=== PATIENT | male | born 1945 | race Caucasian/White ===

== ENCOUNTER 2021-07-26 15:12 | Inpatient (IN) ==
[2021-07-26] MEDS ORDERED: 0.9 % Sodium Chloride 500 ML IVC ONE (15:29)
[2021-07-26 15:30] LABS: ABG Base Excess -8 mEq/L (-2 to 3); ABG Chloride 106 mEq/L (98-107); ABG Glucose 519 mg/dL (60-95); ABG HCO3 14 mEq/L (21-27); ABG Ionized Calcium 1.06 mmol/L (1.15-1.35); ABG Oxygen Saturation 86 % (95-98); ABG PCO2 22 mmHg (35-45); ABG PH 7.41 pH Units (7.32-7.45); ABG PO2 49 mmHg (85-104); ABG TCO2 15 mEq/L (20-26)
[2021-07-26] MEDS ORDERED: Acetaminophen 650 MG RECTAL SUPP RC ONE (15:33)
[2021-07-26 15:37] LABS: Basophils % 0.4 %; Hemoglobin 14.7 g/dL (12.9-16.9); Immature Granulocytes % 1.6 % (0-4); Lymphocytes # 1.5 K/mcL (0.6-4.6); Lymphocytes % 17.3 %; Mean Corpuscular HGB Conc 32.7 g/dL (31.6-35.5); Mean Corpuscular Hemoglobin 27.5 pg (28.0-33.3); Mean Corpuscular Volume 84.1 fL (83.0-100.0); Monocytes # 0.8 K/mcL (0.0-1.3); Monocytes % 9.9 %; Nucleated Red Blood Cells 0.4 /100 WBC (0); Platelet Count 244 K/mcL (140-400); Red Blood Count 5.35 M/mcL (4.19-5.50); Red Cell Distribution Width 15.6 % (11.5-14.5); Segmented Neutrophils % 70.8 %; White Blood Count 8.5 K/mcL (4.3-11.1)
[2021-07-26 15:59] LABS: BUN/Creatinine Ratio 19 (6-26); Blood Urea Nitrogen 25 mg/dL (8-23); Calcium 8.7 mg/dL (8.6-10.3); Carbon Dioxide 17 mEq/L (23-29); Chloride 98 mEq/L (98-107); Glucose 483 mg/dL (70-105); Osmolality,Calculated 302 (280-300); Potassium 4.1 mEq/L (3.5-5.1); Sodium 133 mEq/L (136-145); eGFR For African Americans > 60 (> 60); eGFR For Non-African Americans 52 (> 60)
[2021-07-26 16:01] LABS: Troponin I 0.06 ng/mL (< 0.04)
[2021-07-26 16:07] LABS: Large Platelets Present (Not Present); Reactive Lymphocytes Present (Not Present); Smudge Cells Present (Not Present)
[2021-07-26 17:14] LABS: Influenza A PCR Negative (Negative); Influenza B PCR Negative (Negative); Resp. Syncytial Virus PCR Negative (Negative)
[2021-07-26 17:21] LABS: SARS-CoV-2 by PCR (In House) Positive (Negative)
[2021-07-26] MEDS ORDERED: Isovue-370 500 ML BOTTLE IVP ONE (17:26)
[2021-07-26] MEDS ORDERED: 0.9 % Sodium Chloride 1,000 ML IVC ONE (17:28)
[2021-07-26 17:44] LABS: ABG Base Excess -3 mEq/L (-2 to 3); ABG HCO3 20 mEq/L (21-27); ABG Oxygen Saturation 95 % (95-98); ABG PCO2 30 mmHg (35-45); ABG PH 7.42 pH Units (7.32-7.45); ABG PO2 74 mmHg (85-104); ABG TCO2 21 mEq/L (20-26); Blood Gas Modality NIV
[2021-07-26] MEDS ORDERED: Insulin LISPRO 300 UNITS/3 ML VIAL SUBQ ONE (17:56)
[2021-07-26] MEDS ORDERED: *HR* Heparin 5,000 UNIT/ML VIAL IVP PRN ×2 (18:17)
[2021-07-26] MEDS ORDERED: *HR* Heparin 5,000 UNIT/ML VIAL IVP ONE (18:17)
[2021-07-26] MEDS ORDERED: 0.9 % Sodium Chloride 1,000 ML ONE (19:05)
[2021-07-26 19:06] LABS: INR 1.6; Prothrombin Time 17.3 Seconds (9.4-12.1)
[2021-07-26 19:08] LABS: Heparin anti-factor XA UFH < 0.04 IU/mL (0.30-0.70)
[2021-07-26 19:30] LABS: Bilirubin,Urine Negative (Negative); Blood,Urine Moderate (Negative); Clarity,Urine Clear (Clear); Color,Urine Yellow (Yellow); Glucose,Urine (UA) >=1000 mg/dL (Normal); Ketones,Urine Trace mg/dL (Negative); Leukocyte Esterase,Urine Negative (Negative); Mucus,Urine Few per lpf (None-Few); Nitrite,Urine Negative (Negative); Protein,Urine 200 mg/dL (Neg-Trace); Specific Gravity,Urine > 1.030 (1.010-1.025); Squamous Epithelial Cell,Urine Few per hpf (None-Few); Urobilinogen,Urine Normal (Normal)
[2021-07-26] MEDS: Heparin 25,000UNIT/250ML 1/2NS 25,000 UNIT/250 ML IV.SOLN IVC SCH (19:53)
[2021-07-26] MEDS ORDERED: Ondansetron 4 MG/2 ML VIAL IVP PRN (19:54)
[2021-07-26] MEDS ORDERED: Acetaminophen 325 MG TABLET PO PRN (19:54)
[2021-07-26] MEDS ORDERED: Naloxone 0.4 MG/ML INJ IVP PRN (19:54)
[2021-07-26] MEDS ORDERED: Melatonin 3 MG TABLET PO PRN (19:54)
[2021-07-26] MEDS ORDERED: *HR* Dextrose 50 % in Water (Syg) 50 ML SYRINGE IVP PRN (20:00)
[2021-07-26] MEDS ORDERED: Dexamethasone Sodium Phos/PF 10 MG/ML VIAL IVP SCH (20:00)
[2021-07-26] MEDS ORDERED: Dextrose Gel 15 GM/37.5 ML TUBE PO PRN ×2 (20:00)
[2021-07-26] MEDS ORDERED: D5% in Water 1,000 ML IVC PRN (20:00)
[2021-07-26] MEDS: Insulin LISPRO 300 UNITS/3 ML VIAL SUBQ SCH (22:06)
[2021-07-26] MEDS: Insulin DETEMIR 100 UNIT/ML X5UNITS SUBQ SCH (22:08)
[2021-07-26 23:01] LABS: Albumin 3.2 g/dL (3.5-5.7); Albumin/Globulin Ratio 0.9 (1.1-2.2); BUN/Creatinine Ratio 21 (6-26); Bilirubin,Direct 0.4 mg/dL (0.0-0.2); Bilirubin,Indirect 0.6 mg/dL (0.0-1.0); Blood Urea Nitrogen 24 mg/dL (8-23); Carbon Dioxide 20 mEq/L (23-29); Chloride 106 mEq/L (98-107); Globulin 3.5 g/dL (2.4-3.5); Glucose 334 mg/dL (70-105); Osmolality,Calculated 297 (280-300); Potassium 4.3 mEq/L (3.5-5.1); Sodium 135 mEq/L (136-145); Total Protein 6.7 g/dL (6.4-8.9); eGFR For African Americans > 60 (> 60); eGFR For Non-African Americans > 60 (> 60)
[2021-07-27] MEDS: Insulin LISPRO 300 UNITS/3 ML VIAL SUBQ SCH ×7 (00:36→23:58)
[2021-07-27 02:59] LABS: Basophils % 0.3 %; Hematocrit 41.8 % (37.5-50.1); Immature Granulocytes % 1.5 % (0-4); Lymphocytes % 9.3 %; Mean Corpuscular HGB Conc 33.5 g/dL (31.6-35.5); Mean Corpuscular Volume 83.6 fL (83.0-100.0); Monocytes # 0.5 K/mcL (0.0-1.3); Monocytes % 5.3 %; Neutrophils # 7.6 K/mcL (1.6-8.9); Nucleated Red Blood Cells 0.2 /100 WBC (0); Platelet Count 252 K/mcL (140-400); Red Cell Distribution Width 15.7 % (11.5-14.5); Segmented Neutrophils % 83.6 %; White Blood Count 9.1 K/mcL (4.3-11.1)
[2021-07-27 03:00] LABS: Lymphocytes # 0.9 K/mcL (0.6-4.6); Platelet Estimate Normal (Normal)
[2021-07-27 03:08] LABS: Alanine Aminotransferase 14 Units/L (7-52); Albumin 3.4 g/dL (3.5-5.7); Albumin/Globulin Ratio 0.9 (1.1-2.2); Alkaline Phosphatase 70 Units/L (34-104); Aspartate Amino Transferase 38 Units/L (13-39); BUN/Creatinine Ratio 21 (6-26); Bilirubin,Total 0.9 mg/dL (0.3-1.0); Blood Urea Nitrogen 23 mg/dL (8-23); C-Reactive Protein 166 mg/L (Less than 10); Calcium 8.2 mg/dL (8.6-10.3); Carbon Dioxide 20 mEq/L (23-29); Chloride 108 mEq/L (98-107); Globulin 3.6 g/dL (2.4-3.5); Glucose 289 mg/dL (70-105); Magnesium 2.2 mg/dL (1.6-2.6); Osmolality,Calculated 298 (280-300); Phosphorous 1.6 mg/dL (2.7-4.5); Potassium 4.5 mEq/L (3.5-5.1); Sodium 137 mEq/L (136-145); eGFR For African Americans > 60 (> 60); eGFR For Non-African Americans > 60 (> 60)
[2021-07-27 03:09] LABS: Lactate Dehydrogenase 499 Units/L (140-271)
[2021-07-27 03:10] LABS: Fibrinogen 611 mg/dL (169-393); INR 1.5; Prothrombin Time 16.7 Seconds (9.4-12.1)
[2021-07-27 03:20] LABS: D-Dimer 1102 ng/mLFEU (0-500)
[2021-07-27 03:28] LABS: Ferritin 397 ng/mL (20-250)
[2021-07-27] MEDS ORDERED: Dexamethasone Sodium Phos/PF 10 MG/ML VIAL IVP SCH (09:00)
[2021-07-27] MEDS ORDERED: TOCILIZUMAB 810 MG in 0.9 % Sodium Chloride 95.5 ML IVPB ONE (12:00)
[2021-07-27] MEDS: Furosemide 40 MG/4 ML VIAL IVP SCH (12:50)
[2021-07-27] MEDS: Heparin 25,000UNIT/250ML 1/2NS 25,000 UNIT/250 ML IV.SOLN IVC SCH ×2 (12:52→15:44)
[2021-07-27 16:25] LABS: Estimated Average Glucose 252 mg/dl; Hemoglobin A1C 10.4 %
[2021-07-27] MEDS ORDERED: Lidocaine -MPF 1% 5 ML AMPUL INFILT ONE (17:30)
[2021-07-27] MEDS: Dexmedetomidine HCl 400 MCG/100 ML MLS IVC SCH (17:39)
[2021-07-27] MEDS: Insulin DETEMIR 100 UNIT/ML X5UNITS SUBQ SCH (20:24)
[2021-07-28 02:05] LABS: Basophils % 0.3 %; Hematocrit 40.5 % (37.5-50.1); Hemoglobin 13.4 g/dL (12.9-16.9); Immature Granulocytes % 1.3 % (0-4); Lymphocytes # 1.2 K/mcL (0.6-4.6); Lymphocytes % 11.6 %; Mean Corpuscular HGB Conc 33.1 g/dL (31.6-35.5); Mean Corpuscular Hemoglobin 28.3 pg (28.0-33.3); Mean Corpuscular Volume 85.4 fL (83.0-100.0); Mean Platelet Volume 11.2 fL (9.4-12.4); Monocytes # 0.4 K/mcL (0.0-1.3); Monocytes % 4.2 %; Neutrophils # 8.6 K/mcL (1.6-8.9); Platelet Count 264 K/mcL (140-400); Red Blood Count 4.74 M/mcL (4.19-5.50); Red Cell Distribution Width 15.7 % (11.5-14.5); Segmented Neutrophils % 82.6 %; White Blood Count 10.4 K/mcL (4.3-11.1)
[2021-07-28 02:23] LABS: BUN/Creatinine Ratio 27 (6-26); Blood Urea Nitrogen 31 mg/dL (8-23); Calcium 8.4 mg/dL (8.6-10.3); Carbon Dioxide 23 mEq/L (23-29); Chloride 109 mEq/L (98-107); Glucose 258 mg/dL (70-105); Osmolality,Calculated 307 (280-300); Phosphorous 2.8 mg/dL (2.7-4.5); Potassium 4.1 mEq/L (3.5-5.1); Sodium 141 mEq/L (136-145); eGFR For African Americans > 60 (> 60); eGFR For Non-African Americans > 60 (> 60)
[2021-07-28 03:21] LABS: Platelet Estimate Normal (Normal); Reactive Lymphocytes Present (Not Present)
[2021-07-28] MEDS: Insulin LISPRO 300 UNITS/3 ML VIAL SUBQ SCH ×5 (03:41→21:13)
[2021-07-28] MEDS: Heparin 25,000UNIT/250ML 1/2NS 25,000 UNIT/250 ML IV.SOLN IVC SCH (06:05)
[2021-07-28] MEDS: Furosemide 40 MG/4 ML VIAL IVP SCH (08:27)
[2021-07-28] MEDS: Dexamethasone Sodium Phos/PF 10 MG/ML VIAL IVP SCH (08:27)
[2021-07-28] MEDS: Pantoprazole 40 MG VIAL IVP SCH (08:27)
[2021-07-28 11:06] LABS: Magnesium 2.2 mg/dL (1.6-2.6)
[2021-07-28] MEDS ORDERED: D10% in Water 500 ML IVC PRN (11:24)
[2021-07-28] MEDS ORDERED: Clinimix E 5%-15% SOLUTION 2,000 ML with MVI, adult with vitamin K 10 ML IVC SCH (17:00)
[2021-07-28] MEDS ORDERED: Insulin DETEMIR 100 UNIT/ML X5UNITS SUBQ SCH (21:00)
[2021-07-28] MEDS: Fat Emulsion 250 ML IVPB SCH (21:05)
[2021-07-28] MEDS: Metoprolol XL (24 HR) Succ 25 MG TAB.ER.24H PO SCH (21:13)
[2021-07-29] MEDS: Artificial Tears SOLN 15 ML BOTTLE BOTH EYES SCH ×5 (01:38→22:09)
[2021-07-29] MEDS: Insulin LISPRO 300 UNITS/3 ML VIAL SUBQ SCH ×10 (03:58→22:09)
[2021-07-29] MEDS: Dexmedetomidine HCl 400 MCG/100 ML MLS IVC SCH ×2 (04:58→12:58)
[2021-07-29 05:55] LABS: Hematocrit 44.3 % (37.5-50.1); Hemoglobin 14.4 g/dL (12.9-16.9); Mean Corpuscular HGB Conc 32.5 g/dL (31.6-35.5); Mean Platelet Volume 11.7 fL (9.4-12.4); Platelet Count 281 K/mcL (140-400); Red Blood Count 5.15 M/mcL (4.19-5.50); Red Cell Distribution Width 15.7 % (11.5-14.5); White Blood Count 14.1 K/mcL (4.3-11.1)
[2021-07-29] MEDS ORDERED: Acetaminophen IV 500 MG/50 ML BAG IVPB ONE (05:57)
[2021-07-29 06:06] LABS: Heparin anti-factor XA UFH 0.66 IU/mL (0.30-0.70)
[2021-07-29] MEDS: Heparin 25,000UNIT/250ML 1/2NS 25,000 UNIT/250 ML IV.SOLN IVC SCH (06:46)
[2021-07-29 08:07] LABS: Alanine Aminotransferase 13 Units/L (7-52); Albumin/Globulin Ratio 0.8 (1.1-2.2); Alkaline Phosphatase 100 Units/L (34-104); Aspartate Amino Transferase 28 Units/L (13-39); BUN/Creatinine Ratio 41 (6-26); Blood Urea Nitrogen 50 mg/dL (8-23); Calcium 8.3 mg/dL (8.6-10.3); Carbon Dioxide 20 mEq/L (23-29); Chloride 110 mEq/L (98-107); Globulin 3.9 g/dL (2.4-3.5); Glucose 404 mg/dL (70-105); Magnesium 2.3 mg/dL (1.6-2.6); Osmolality,Calculated 322 (280-300); Phosphorous 3.2 mg/dL (2.7-4.5); Potassium 4.5 mEq/L (3.5-5.1); Sodium 141 mEq/L (136-145); Total Protein 6.9 g/dL (6.4-8.9); eGFR For African Americans > 60 (> 60); eGFR For Non-African Americans 58 (> 60)
[2021-07-29 08:18] LABS: BUN/Creatinine Ratio 39 (6-26); Blood Urea Nitrogen 50 mg/dL (8-23); Calcium 8.2 mg/dL (8.6-10.3); Carbon Dioxide 20 mEq/L (23-29); Chloride 109 mEq/L (98-107); Glucose 404 mg/dL (70-105); Lactate Dehydrogenase 513 Units/L (140-271); Osmolality,Calculated 324 (280-300); Potassium 4.5 mEq/L (3.5-5.1); Sodium 142 mEq/L (136-145); eGFR For African Americans > 60 (> 60); eGFR For Non-African Americans 55 (> 60)
[2021-07-29] MEDS: Pantoprazole 40 MG VIAL IVP SCH (10:33)
[2021-07-29] MEDS: Dexamethasone Sodium Phos/PF 10 MG/ML VIAL IVP SCH (10:33)
[2021-07-29] MEDS: Furosemide 40 MG/4 ML VIAL IVP SCH (10:33)
[2021-07-29] MEDS: Metoprolol XL (24 HR) Succ 25 MG TAB.ER.24H PO SCH ×2 (10:34→20:49)
[2021-07-29] MEDS: Cyanocobalamin (B-12) 1,000 MCG TABLET PO SCH (10:34)
[2021-07-29] MEDS: Loratadine 10 MG TABLET PO SCH (10:34)
[2021-07-29] MEDS: Aspirin 325 MG TABLET PO SCH (10:34)
[2021-07-29 10:36] LABS: C-Reactive Protein 60 mg/L (Less than 10); Ferritin 337 ng/mL (20-250)
[2021-07-29] MEDS: *HR* Enoxaparin 100 MG/ML SYRINGE SQ SCH ×2 (13:52→22:10)
[2021-07-29] MEDS ORDERED: Clinimix E 5%-15% SOLUTION 2,000 ML with MVI, adult with vitamin K 10 ML IVC SCH (17:00)
[2021-07-29] MEDS: Fat Emulsion 250 ML IVPB SCH (20:29)
[2021-07-29] MEDS ORDERED: *HR* LORazepam 2 MG/ML VIAL IVP PRN (21:16)
[2021-07-29] MEDS: Insulin DETEMIR 100 UNIT/ML X5UNITS SUBQ SCH (22:10)
[2021-07-30] MEDS: Insulin LISPRO 300 UNITS/3 ML VIAL SUBQ SCH ×14 (01:29→23:39)
[2021-07-30 05:24] LABS: Alanine Aminotransferase 14 Units/L (7-52); Albumin 3.3 g/dL (3.5-5.7); Albumin/Globulin Ratio 0.8 (1.1-2.2); Alkaline Phosphatase 130 Units/L (34-104); Aspartate Amino Transferase 36 Units/L (13-39); BUN/Creatinine Ratio 46 (6-26); Bilirubin,Total 1.2 mg/dL (0.3-1.0); Blood Urea Nitrogen 54 mg/dL (8-23); Calcium 8.8 mg/dL (8.6-10.3); Carbon Dioxide 21 mEq/L (23-29); Chloride 110 mEq/L (98-107); Globulin 3.9 g/dL (2.4-3.5); Glucose 342 mg/dL (70-105); Magnesium 2.3 mg/dL (1.6-2.6); Osmolality,Calculated 324 (280-300); Phosphorous 2.7 mg/dL (2.7-4.5); Sodium 143 mEq/L (136-145); Total Protein 7.2 g/dL (6.4-8.9); eGFR For African Americans > 60 (> 60); eGFR For Non-African Americans > 60 (> 60)
[2021-07-30 05:29] LABS: Hematocrit 48.3 % (37.5-50.1); Hemoglobin 15.6 g/dL (12.9-16.9); Mean Corpuscular HGB Conc 32.3 g/dL (31.6-35.5); Mean Corpuscular Hemoglobin 27.6 pg (28.0-33.3); Mean Corpuscular Volume 85.5 fL (83.0-100.0); Mean Platelet Volume 12.4 fL (9.4-12.4); Platelet Count 264 K/mcL (140-400); Red Blood Count 5.65 M/mcL (4.19-5.50); Red Cell Distribution Width 15.6 % (11.5-14.5); White Blood Count 18.3 K/mcL (4.3-11.1)
[2021-07-30 08:19] LABS: ABG Base Excess -3 mEq/L (-2 to 3); ABG HCO3 19 mEq/L (21-27); ABG Oxygen Saturation 89 % (95-98); ABG PCO2 27 mmHg (35-45); ABG PH 7.45 pH Units (7.32-7.45); ABG PO2 52 mmHg (85-104); ABG TCO2 20 mEq/L (20-26)
[2021-07-30] MEDS: Aspirin 325 MG TABLET PO SCH (08:34)
[2021-07-30] MEDS: Benzonatate 100 MG CAPSULE PO PRN ×2 (08:34→15:55)
[2021-07-30] MEDS: Loratadine 10 MG TABLET PO SCH ×2 (08:34→08:35)
[2021-07-30] MEDS: *HR* OxyCODONE Immed Rel 5 MG TABLET PO PRN ×2 (08:34→15:55)
[2021-07-30] MEDS: Cyanocobalamin (B-12) 1,000 MCG TABLET PO SCH (08:35)
[2021-07-30] MEDS: Metoprolol XL (24 HR) Succ 25 MG TAB.ER.24H PO SCH ×2 (08:36→20:32)
[2021-07-30] MEDS: Dexamethasone Sodium Phos/PF 10 MG/ML VIAL IVP SCH (08:42)
[2021-07-30] MEDS: Pantoprazole 40 MG VIAL IVP SCH (08:43)
[2021-07-30] MEDS: Furosemide 40 MG/4 ML VIAL IVP SCH (08:43)
[2021-07-30] MEDS: Artificial Tears SOLN 15 ML BOTTLE BOTH EYES SCH ×4 (08:44→20:27)
[2021-07-30] MEDS: Saliva Stimulant 44.3ml BOTTLE PO PRN (08:44)
[2021-07-30] MEDS: Insulin DETEMIR 100 UNIT/ML X5UNITS SUBQ SCH ×2 (08:50→20:27)
[2021-07-30] MEDS: Dexmedetomidine HCl 400 MCG/100 ML MLS IVC SCH (09:25)
[2021-07-30] MEDS: *HR* Enoxaparin 100 MG/ML SYRINGE SQ SCH ×2 (13:25→23:37)
[2021-07-30] MEDS: Haloperidol Lactate 5 MG/ML VIAL IVP PRN ×2 (13:26→23:55)
[2021-07-30] MEDS ORDERED: Clinimix E 5%-15% SOLUTION 2,000 ML with MVI, adult with vitamin K 10 ML IVC SCH (17:00)
[2021-07-30] MEDS ORDERED: Warfarin perPT PO PRN (18:00)
[2021-07-30] MEDS ORDERED: *HR* Warfarin 3 MG TABLET PO ONE (18:00)
[2021-07-30] MEDS: Fat Emulsion 250 ML IVPB SCH (19:09)
[2021-07-30 19:56] LABS: INR 1.5; Prothrombin Time 16.4 Seconds (9.4-12.1)
[2021-07-31 03:36] LABS: INR 1.4; Prothrombin Time 15.1 Seconds (9.4-12.1)
[2021-07-31 03:49] LABS: Alanine Aminotransferase 13 Units/L (7-52); Albumin/Globulin Ratio 0.9 (1.1-2.2); Alkaline Phosphatase 119 Units/L (34-104); Aspartate Amino Transferase 41 Units/L (13-39); BUN/Creatinine Ratio 45 (6-26); Bilirubin,Total 0.9 mg/dL (0.3-1.0); Blood Urea Nitrogen 52 mg/dL (8-23); Calcium 8.6 mg/dL (8.6-10.3); Carbon Dioxide 23 mEq/L (23-29); Chloride 109 mEq/L (98-107); Globulin 3.4 g/dL (2.4-3.5); Glucose 281 mg/dL (70-105); Magnesium 2.2 mg/dL (1.6-2.6); Osmolality,Calculated 318 (280-300); Phosphorous 2.8 mg/dL (2.7-4.5); Potassium 4.2 mEq/L (3.5-5.1); Sodium 142 mEq/L (136-145); Total Protein 6.4 g/dL (6.4-8.9); eGFR For African Americans > 60 (> 60); eGFR For Non-African Americans > 60 (> 60)
[2021-07-31 03:50] LABS: Lactate Dehydrogenase 740 Units/L (140-271)
[2021-07-31 04:01] LABS: Basophils # 0.1 K/mcL (0.0-0.2); Basophils % 0.4 %; Hematocrit 45.8 % (37.5-50.1); Hemoglobin 14.6 g/dL (12.9-16.9); Immature Granulocytes % 1.3 % (0-4); Lymphocytes % 7.1 %; Mean Corpuscular HGB Conc 31.9 g/dL (31.6-35.5); Mean Corpuscular Hemoglobin 27.1 pg (28.0-33.3); Mean Corpuscular Volume 85.1 fL (83.0-100.0); Mean Platelet Volume 12.1 fL (9.4-12.4); Monocytes # 0.4 K/mcL (0.0-1.3); Monocytes % 3.1 %; Nucleated Red Blood Cells 0.9 /100 WBC (0); Platelet Count 235 K/mcL (140-400); Red Blood Count 5.38 M/mcL (4.19-5.50); Red Cell Distribution Width 15.7 % (11.5-14.5); Segmented Neutrophils % 88.1 %; White Blood Count 13.9 K/mcL (4.3-11.1)
[2021-07-31 04:08] LABS: Ferritin 330 ng/mL (20-250)
[2021-07-31 04:12] LABS: Neutrophils # 12.3 K/mcL (1.6-8.9)
[2021-07-31] MEDS: Insulin LISPRO 300 UNITS/3 ML VIAL SUBQ SCH ×12 (04:28→23:01)
[2021-07-31] MEDS: Metoprolol XL (24 HR) Succ 25 MG TAB.ER.24H PO SCH ×2 (08:28→19:54)
[2021-07-31] MEDS: Loratadine 10 MG TABLET PO SCH (08:28)
[2021-07-31] MEDS: Cyanocobalamin (B-12) 1,000 MCG TABLET PO SCH (08:28)
[2021-07-31] MEDS: Aspirin 325 MG TABLET PO SCH (08:28)
[2021-07-31] MEDS: Benzonatate 100 MG CAPSULE PO PRN (08:28)
[2021-07-31] MEDS: Furosemide 40 MG/4 ML VIAL IVP SCH (08:30)
[2021-07-31] MEDS: Pantoprazole 40 MG VIAL IVP SCH (08:30)
[2021-07-31] MEDS: Dexamethasone Sodium Phos/PF 10 MG/ML VIAL IVP SCH (08:30)
[2021-07-31] MEDS: Haloperidol Lactate 5 MG/ML VIAL IVP PRN ×2 (08:30→18:25)
[2021-07-31] MEDS: Dexmedetomidine HCl 400 MCG/100 ML MLS IVC SCH ×4 (08:31→20:40)
[2021-07-31] MEDS: Artificial Tears SOLN 15 ML BOTTLE BOTH EYES SCH ×4 (08:35→20:36)
[2021-07-31] MEDS: Saliva Stimulant 44.3ml BOTTLE PO PRN ×2 (08:36→18:25)
[2021-07-31] MEDS: Insulin DETEMIR 100 UNIT/ML X5UNITS SUBQ SCH ×2 (08:42→20:39)
[2021-07-31] MEDS: *HR* Enoxaparin 100 MG/ML SYRINGE SQ SCH ×2 (13:25→23:01)
[2021-07-31] MEDS ORDERED: Clinimix E 5%-15% SOLUTION 2,000 ML with MVI, adult with vitamin K 10 ML IVC SCH ×2 (17:00)
[2021-07-31] MEDS ORDERED: *HR* Warfarin 4 MG TABLET PO ONE (18:00)
[2021-07-31] MEDS: Fat Emulsion 250 ML IVPB SCH (18:28)
[2021-08-01] MEDS: Haloperidol Lactate 5 MG/ML VIAL IVP PRN ×2 (01:35→09:13)
[2021-08-01] MEDS: Insulin LISPRO 300 UNITS/3 ML VIAL SUBQ SCH ×6 (04:54→19:31)
[2021-08-01] MEDS: Dexmedetomidine HCl 400 MCG/100 ML MLS IVC SCH ×3 (04:56→16:12)
[2021-08-01 05:13] LABS: Basophils # 0.1 K/mcL (0.0-0.2); Basophils % 0.7 %; Hematocrit 48.5 % (37.5-50.1); Hemoglobin 15.5 g/dL (12.9-16.9); Immature Granulocytes % 1.3 % (0-4); Lymphocytes # 0.8 K/mcL (0.6-4.6); Lymphocytes % 5.5 %; Mean Corpuscular Hemoglobin 27.6 pg (28.0-33.3); Mean Corpuscular Volume 86.3 fL (83.0-100.0); Mean Platelet Volume 12.2 fL (9.4-12.4); Monocytes # 0.5 K/mcL (0.0-1.3); Platelet Count 195 K/mcL (140-400); Red Blood Count 5.62 M/mcL (4.19-5.50); Red Cell Distribution Width 16.3 % (11.5-14.5); Segmented Neutrophils % 88.5 %; White Blood Count 13.6 K/mcL (4.3-11.1)
[2021-08-01 05:22] LABS: INR 1.4; Prothrombin Time 15.5 Seconds (9.4-12.1)
[2021-08-01 05:34] LABS: BUN/Creatinine Ratio 44 (6-26); Blood Urea Nitrogen 54 mg/dL (8-23); Calcium 8.4 mg/dL (8.6-10.3); Carbon Dioxide 23 mEq/L (23-29); Chloride 109 mEq/L (98-107); Glucose 318 mg/dL (70-105); Magnesium 2.3 mg/dL (1.6-2.6); Osmolality,Calculated 321 (280-300); Phosphorous 3.4 mg/dL (2.7-4.5); Potassium 4.6 mEq/L (3.5-5.1); Sodium 142 mEq/L (136-145); eGFR For African Americans > 60 (> 60); eGFR For Non-African Americans 58 (> 60)
[2021-08-01 05:37] LABS: Large Platelets Present (Not Present); Platelet Estimate Normal (Normal)
[2021-08-01 07:02] VITALS: TEMP 98.3
[2021-08-01] MEDS ORDERED: Morphine Sulfate 2 MG/ML SYRINGE IVP ONE (08:27)
[2021-08-01] MEDS ORDERED: Insulin DETEMIR 100 UNIT/ML X5UNITS SUBQ SCH (09:00)
[2021-08-01] MEDS: Dexamethasone Sodium Phos/PF 10 MG/ML VIAL IVP SCH (09:03)
[2021-08-01] MEDS: Aspirin 325 MG TABLET PO SCH (09:04)
[2021-08-01] MEDS: Artificial Tears SOLN 15 ML BOTTLE BOTH EYES SCH ×3 (09:04→19:33)
[2021-08-01] MEDS: Cyanocobalamin (B-12) 1,000 MCG TABLET PO SCH (09:05)
[2021-08-01] MEDS: Metoprolol XL (24 HR) Succ 25 MG TAB.ER.24H PO SCH (09:05)
[2021-08-01] MEDS: Pantoprazole 40 MG VIAL IVP SCH (09:12)
[2021-08-01] MEDS: Furosemide 40 MG/4 ML VIAL IVP SCH (09:13)
[2021-08-01] MEDS: *HR* Enoxaparin 100 MG/ML SYRINGE SQ SCH (10:51)
[2021-08-01] MEDS ORDERED: Morphine Sulfate 2 MG/ML SYRINGE IVP PRN ×3 (11:12→13:33)
[2021-08-01] MEDS ORDERED: *HR* LORazepam 2 MG/ML VIAL IVP PRN (11:14)
[2021-08-01 12:14] VITALS: BP 122/71; PULSE 63; O2SAT 91
[2021-08-01] MEDS ORDERED: *HR* LORazepam 2 MG/ML VIAL IVP ONE (13:51)
[2021-08-01] MEDS ORDERED: *HR* FentaNYL (PF) 100 MCG/2 ML VIAL IVP PRN (13:51)
[2021-08-01] MEDS: Morphine Sulfate 2 MG/ML SYRINGE IVP PRN ×3 (14:04→14:55)
[2021-08-01] MEDS: *HR* FentaNYL (PF) 100 MCG/2 ML VIAL IVP PRN ×2 (14:25→14:55)
[2021-08-01] MEDS ORDERED: Atropine Sulfate 1% 40 DROP/2 ML BOTTLE SL PRN (14:27)
[2021-08-01] MEDS ORDERED: FentaNYL (PF) 1,000 MCG/100 ML IV.SOLN IVC SCH (15:00)
[2021-08-01] MEDS ORDERED: Clinimix E 5%-15% SOLUTION 2,000 ML with MVI, adult with vitamin K 10 ML IVC SCH ×2 (17:00)
[2021-08-01] MEDS ORDERED: *HR* Warfarin 4 MG TABLET PO ONE (18:00)
== END 2021-08-01 20:02 | disposition expired | DRG 871 ==
LOC: 2ANU 15:12 → EMEROOARM 15:12 → SUATTDRO 21:03 → 2ANU 21:49 → 2NNU 07-27 16:59
PROVIDERS: ADMIT Student in an Organized Health Care Education/Training Program; ATTEND Internal Medicine